=== PATIENT | female | born 1980 | race Caucasian/White ===

== ENCOUNTER 2016-12-25 15:26 | Day surgery (SDC) | payer OTHER ==
[2016-12-25] VITALS (12 sets, daily range): BP systolic 114–130; BP diastolic 65–84; PULSE 68–94; RESP 11–21; Ht 157.5 cm; Wt 104.8 kg
[~2016-12-25] VITALS: Ht 157.5 cm; Wt 104.8 kg
--- NOTE | 2016-12-25 17:23 | HPN ---
Date/Time of Note Date/Time of Note DATE: 12/25/16 TIME: 17:23 Interval H&P Admission Note Pt. seen H&P reviewed: No system changes QUINTEN ROWELL DPM Dec 25, 2016 17:23
[2016-12-25] MEDS ORDERED: CEFAZOLIN 1 GM/50 ML (PMX) 50 ML IVPB ONE (17:30)
[2016-12-25] MEDS ORDERED: BUPIVACAINE 0.5% (SDV) 30 ML INJ ONE (17:38)
[2016-12-25] MEDS ORDERED: FENTAnyl 50 MCG/ML VIAL ONE ×2 (17:46→19:37)
[2016-12-25] MEDS ORDERED: PROPOFOL 20 ML ONE (17:46)
[2016-12-25] MEDS ORDERED: MIDAZOLAM 1 MG/ML 2 ML INJ ONE (17:46)
[2016-12-25] MEDS ORDERED: LIDOCAINE 1% (MDV) 20 ML INJ ONE (17:46)
[2016-12-25] MEDS ORDERED: ROPIVACAINE 0.5 % 30 ML VIAL ONE (17:49)
[2016-12-25] MEDS ORDERED: DEXAMETHASONE 4 MG/ML 1 ML INJ ONE (18:13)
[2016-12-25] MEDS ORDERED: FAMOTIDINE 20 MG INJ ONE (18:13)
[2016-12-25] MEDS ORDERED: ONDANSETRON 4 MG INJ ONE (18:13)
[2016-12-25] MEDS ORDERED: CEFAZOLIN 1 GM INJ ONE (18:23)
[2016-12-25] MEDS ORDERED: HYDROmorphONE (0.2 MG/ML) 10ML SYG IV PRN ×2 (19:30)
[2016-12-25] MEDS ORDERED: PROCHLORPERAZINE 10 MG INJ IV PRN (19:30)
[2016-12-25] MEDS ORDERED: DIPHENHYDRAMINE 50 MG INJ IV PRN (19:30)
[2016-12-25] MEDS ORDERED: MEPERIDINE 25 MG INJ IV PRN (19:30)
--- NOTE | 2016-12-27 14:25 | RADRPT ---
PROCEDURE: Intraoperative imaging of the right foot with fluoroscopy. CLINICAL INDICATION: Right foot pain. Intraoperative. TECHNIQUE: 89 images of the right foot were obtained in the operating room with an image intensifi er. No radiologist was in attendance. Fluoroscopy time is unavailable COMPARISON: No prior study is available for comparison. FINDINGS: Images demonstrate placement of a cannulated screw transfixing the fracture of the base of the fifth metatarsal. IMPRESSION: 1. Intraoperative imaging of the right foot. RPTAT: QQ .Jerson Vernon MD, MD Date Time Electronically viewed and signed by .Jerson Vernon MD, on 12/27/2016 14:25 .R/
--- NOTE | 2016-12-27 14:35 | RADRPT ---
PROCEDURE: XR Right Foot. CLINICAL INDICATION: Right foot pain. Postop. TECHNIQUE: Three views. Frontal, lateral, and oblique. COMPARISON: None. FINDINGS: There is a single cannulated screw transfixing the fracture of the base of the fifth metatarsal. Al ignment is satisfactory. There is no other fracture or dislocation. The bone detail is obscured by the overlying cast. Articular surfaces are intact. There is no lytic or blastic lesion. There is a posterior calcaneal spur. IMPRESSION: 1. Satisfactory postoperative appearance of the right foot. RPTAT: QQ .Jerson Vernon MD, Date Time Electronically viewed and signed by .Jerson Vernon MD, on 12/27/2016 14:35 .R/
== END 2016-12-25 21:18 | disposition home or self-care (01) ==
LOC: SDS 15:26
PROVIDERS: ATTEND Podiatrist Foot & Ankle Surgery
DX: S92.351D Displaced fracture of fifth metatarsal bone, right foot, subsequent encounter for fracture with routine healing (principal); X58.XXXD Exposure to other specified factors, subsequent encounter; E66.9 Obesity, unspecified; Z68.41 Body mass index [BMI] 40.0-44.9, adult
CPT/HCPCS: 28485; 73620; 73630; J0690; J1100; J2250; J2405; J2795; J3010